=== PATIENT | male | born 1965 | race Caucasian/White ===

== ENCOUNTER 2019-02-18 02:16 | Outpatient (CLI) | payer MEDICAID, SELFPAY ==
[2019-02-18 10:58] LABS: CREATININE 0.97 mg/dL (0.70-1.30); Cholesterol 189 mg/dL (50-200); Glucose 104 mg/dL (70-100); HDL Cholesterol 99 mg/dL (40-60); LDL CHOLESTEROL 70 mg/dL (<100); Triglyceride 45 mg/dL (30-150)
== END 2019-02-18 02:36 ==
PROVIDERS: PCP General Practice; Visit Provider General Practice
DX: Z13.220 Encounter for screening for lipoid disorders (principal); Z13.1 Encounter for screening for diabetes mellitus; Z00.00 Encounter for general adult medical examination without abnormal findings; Z13.89 Encounter for screening for other disorder
CPT/HCPCS: 36415; 80061; 82947; 83721; 82565

== ENCOUNTER 2019-03-28 00:30 | Outpatient (CLI) | payer MEDICAID, SELFPAY ==
--- NOTE | 2019-03-28 12:43 | DI.US_ITS ---
SYMPTOMS/DIAGNOSIS: GROIN MASS, RT INGUINAL CREASE RIGHT GROIN ULTRASOUND: A 1.96 cm reducible right inguinal hernia is identified.
== END 2019-03-28 00:50 ==
PROVIDERS: PCP General Practice; Visit Provider General Practice
DX: K40.90 Unilateral inguinal hernia, without obstruction or gangrene, not specified as recurrent (principal); R22.2 Localized swelling, mass and lump, trunk
CPT/HCPCS: 76857

== ENCOUNTER 2022-05-04 18:28 | Outpatient (REF) | payer SELFPAY ==
[2022-05-04 18:12] LABS: HCT 47.3 % (40.0-50.0); HGB 16.1 g/dL (13.5-17.5); MCH 32.1 pg (27.0-33.0); MCV 94 fL (80-95); MPV 10.1 fL (8.0-11.0); Platelet Count 281 10^3/uL (130-400); RBC 5.02 10^6/uL (4.36-5.78); RDW 13.7 % (11.8-14.1); RDW-SD 48.2 fL; WBC 7.82 10^3/uL (4.4-10.8)
[2022-05-04 18:23] LABS: ALT 21 U/L (16-63); AST 20 U/L (15-37); Alkaline Phosphatase 82 U/L (46-116); Anion Gap 9.5 mmol/L (3-11); BUN 16 mg/dL (7-18); Bilirubin, Total 0.4 mg/dL (0.2-1.0); CO2 24.5 mmol/L (21.0-32.0); CREATININE 0.9 mg/dL (0.70-1.30); Calcium 9.2 mg/dL (8.5-10.1); Chloride 101 mmol/L (98-107); Glucose 99 mg/dL (74-106); Potassium 4.8 mmol/L (3.5-5.1); Sodium 135 mmol/L (136-145); Total Protein 7.8 g/dL (6.4-8.2)
== END 2022-05-04 18:29 | disposition home or self-care (01) ==
LOC: NCHCN 18:28
PROVIDERS: PCP General Practice; Visit Provider Nurse Practitioner Family
DX: Z00.00 Encounter for general adult medical examination without abnormal findings (principal); F10.99 Alcohol use, unspecified with unspecified alcohol-induced disorder; Z72.0 Tobacco use
CPT/HCPCS: 80053; 85027

== ENCOUNTER 2023-01-21 15:08 | Outpatient (REF) | payer SELFPAY ==
[2023-01-21 19:00] LABS: ALT 46 U/L (16-63); AST 35 U/L (15-37); Albumin 4.1 g/dL (3.4-5.0); Alkaline Phosphatase 78 U/L (46-116); Anion Gap 9.3 mmol/L (3-11); BUN 13 mg/dL (7-18); Bilirubin, Total 0.4 mg/dL (0.2-1.0); CO2 23.7 mmol/L (21.0-32.0); Calcium 9.4 mg/dL (8.5-10.1); Chloride 102 mmol/L (98-107); Estimated GFR 87.78 (mL/min/1.73m2); Glucose 128 mg/dL (74-106); Potassium 4.2 mmol/L (3.5-5.1); Sodium 135 mmol/L (136-145); Total Protein 7.7 g/dL (6.4-8.2)
== END 2023-01-21 15:09 | disposition home or self-care (01) ==
LOC: NCHCN 15:08
PROVIDERS: PCP General Practice; Visit Provider Nurse Practitioner Family
DX: B35.1 Tinea unguium (principal)
CPT/HCPCS: 80053

== ENCOUNTER 2024-03-10 15:06 | Emergency (ER) | payer SELFPAY ==
--- NOTE | 2024-03-10 15:00 | RT.EKG_ITS ---
APPROVED REPORT Exam: Resting ECG Reason for Exam: stroke Patient Location: E HR:73 bpm ECG Measurements Heart Rate 73 AXIS MT 158 P 67 QRSd 92 QRS -5 QT 415 T 59 QTc 459 Conclusion Sinus rhythm...normal P axis, V-rate 60- 99 Narrow complex normal sinus rhythm at a rate of 73. Intervals within normal limits. No ST segment a bnormalities. T wave flattening in aVL. No T wave versions. No prior for comparison. No acute inj ury pattern.
[2024-03-10 15:09] VITALS: BP 166/93; PULSE 76; RESP 18; TEMP 36.7; O2SAT 99
--- NOTE | 2024-03-10 15:15 | DI.CT_ITS ---
Exam(s) CT BRAIN NECK CTA EXAM: CT BRAIN NECK CTA CLINICAL HISTORY: Right arm numbness. TECHNIQUE: Imaging Protocol: Axial CT angiography was performed with multi-slice acquisition and mu lti-planar and MIP reconstructions. CONTRAST MATERIAL: Intravenous: Omnipaque 350 Contrast volume:85 mL COMPARISON: No exams were available for comparison FINDINGS: CT Head W/O and W contrast: Ventricles and Extra axial spaces: Normal in size and morphology for the patient's age. Hemorrhage: None. Cerebral parenchyma: No evidence of acute infarct or mass. Midline shift: None. Brainstem/Cerebellum: No acute findings.. Calvarium: Normal. Visualized Paranasal sinuses/Mastoids: Mucous retention at the floors of the maxillary sinus and with in several ethmoid sinuses well as well as mucosal thickening of the frontal sinuses. Soft Tissues: Unremarkable. Enhancement: Normal. CTA Brain W: Internal Carotid Arteries: Petrous: Mild calcifications. No significant stenosis. Cavernous: Normal. Cerebral: Normal. Middle Cerebral Arteries: Right: No aneurysm, occlusion or significant stenosis. Left: No aneurysm, occlusion or significant stenosis. Anterior Cerebral Arteries: Right: No aneurysm, occlusion or significant stenosis. Left: No aneurysm, occlusion or significant stenosis. Posterior cerebral Arteries: Right: No aneurysm, occlusion or significant stenosis. Left: No aneurysm, occlusion or significant stenosis. Vertebral Arteries: Right: No aneurysm, occlusion or significant stenosis. Left: No aneurysm, occlusion or significant stenosis. Basilar Artery: No aneurysm, occlusion or significant stenosis. CTA Neck W: Common Carotid: Mild calcific plaque at the bulbs. Right: No dissection, occlusion or significant stenosis. Left: No dissection, occlusion or significant stenosis. External Carotid: Right: No dissection, occlusion or significant stenosis. Left: No dissection, occlusion or significant stenosis. Internal Carotid: Right: No dissection, occlusion or significant stenosis. Left: No dissection, occlusion or significant stenosis. Vertebral Artery: Right: No dissection, occlusion or significant stenosis. Left: No dissection, occlusion or significant stenosis. Lung Apices: Emphysematous changes. Bones: No acute abnormality. Degenerative changes in the cervical spine. Soft Tissues: Normal. IMPRESSION: 1. CTA brain: No evidence of occlusion, significant stenosis or aneurysm. 2. Head CT: Unremarkable CT Head. 3. CTA neck: Mild plaque at the common carotid bulbs. No significant stenosis. RADIATION DOSE DELIVERED: 1,797.71mGy.cm Total DLP DATA REPOSITORY: All CT scans at this facility are submitted to the National Radiology Data Registry (NRDR) Dose Index Registry (DIR) with the [employer] (A[employer]). RADIATION OPTIMIZATION: All CT scans at this facility use at least one of these dose optimization te chniques: automated exposure control; mA and/or kV adjustment per patient size (includes targeted exa ms where dose is matched to clinical indication); or iterative reconstruction.
--- NOTE | 2024-03-10 15:15 | DI.RAD_ITS ---
Exam(s) XR CHEST 1V IN DI DEPT EXAM: XR CHEST 1V IN DI DEPT CLINICAL HISTORY: Right arm numbness TECHNIQUE: 2D digital imaging was performed. COMPARISON: CT CT CHEST LUNG CANCER SCREEN from 05/11/2022 FINDINGS: LUNGS: Emphysematous changes, greater at the lung apices. Mild fibrotic changes. No evidence infilt rate or mass. No pleural abnormality seen. HEART: Normal size. AORTA: Normal diameter. BONES: Unremarkable for age. Soft tissues: Unremarkable. IMPRESSION: No acute findings. Emphysematous changes peer DATA REPOSITORY: RADIATION DOSE DELIVERED:
[2024-03-10 15:18] VITALS: BP 166/93; PULSE 76; RESP 16; RESP 18; TEMP 36.7; O2SAT 99
--- NOTE | 2024-03-10 15:27 | W.ED.GENAD ---
Discharge Plan Disposition Patient Disposition: Home Discharge Details Clinical Impression: Right sided numbness, Hypomagnesemia, Brain TIA, Blood pressure elevated without history of HTN Primary Care Provider: Natividad Falcon ED Provider: Damián Lasren Home Meds and New Rx's Prescriptions: New aspirin 81 mg capsule 81 mg PO DAILY Qty: 90 0RF simvastatin 20 mg tablet 20 mg PO DAILY Qty: 30 0RF Continued cyclobenzaprine 10 MG tablet 10 mg PO TID PRNQty: 30 0RF Discontinued ibuprofen 800 MG tablet 800 mg PO TID Qty: 30 0RF prednisone 20 MG tablet 20 mg PO DAILY Qty: 5 0RF Discharge Instructions Additional Instructions: You are seen in the emergency department for your left-sided numbness. Your CAT scan showed no sign of any bleeding in your head. You likely have had a mini stroke which is called a transient ischemic attack??TIA. If you develop similar symptoms again please return to the emergency department. Otherwise please take 81 mg of aspirin every day and follow-up with your primary care provider next week. You need to have an MRI performed of your brain, and echocardiogram performed of your heart, a Holter monitor, and to have your lipids checked. If you have any concerns or recurrent symptoms please return to the emergency department. Discharge Data Discharge Date/Time-TO BE ENTERED AT DEPARTURE: 03/10/24 17:57 HPI General Date/Time Provider Initiated Documentation: 03/10/24 15:24. HPI Narrative: MDM This is an overall well-appearing normothermic and not tachycardic but hypertensive 58-year-old male with transient right-sided numbness yesterday, elevated blood pressure and significant tobacco use concerning for the possibility of TIA. Patient is not a lytic candidate as he is having no neurological deficits at the moment so we will defer tPA. My suspicion is low for large vessel occlusion given no symptoms at the moment however given vascular risk factors of tobacco use with elevated blood pressure will complete CT angiogram of the patient's head and neck. No nuchal rigidity nor fevers to suggest meningitis so no indications for lumbar puncture. No tonic-clonic activity to suggest seizures I do not feel that the patient requires an EEG nor antiseizure medications. No chest pain to suggest aortic dissection. No pain out of proportion to suggest necrotizing soft tissue infection. No vomiting nausea nor nystagmus to suggest posterior circulation CVA so I did not apply the hints exam. No abdominal pain nor vomiting to suggest esophageal rupture. Once the CT has been completed we will consult neurology at [facility]. His ABCD2 score was 1. Will also place patient on a CIWA protocol given history of ethanol abuse. He is hypertensive but not tachycardic nor tremulous so will defer benzodiazepines at this point in time. 3:45 PM CBC lacks anemia thrombocytopenia and leukocytosis. 3:52 PM No obvious bleed on my preliminary interpretation of the patient's dry CT head. I placed a teleneuro consult with [facility]. 4:12 PM CTA brain with no evidence of occlusion significant stenosis or aneurysm. Negative CT head. Mild common carotid plaques. No significant stenoses per radiology. Basic metabolic panel showing no CKD. No DAISY. No acute electrolyte abnormalities. No hyperglycemia. Negative troponin. Very mild hypomagnesemia for which patient will receive oral repletion. Chest x-ray with emphysematous changes. No acute cardiopulmonary process per radiology. 5:10 PM I spoke to Dr. Garcia from neurology at [facility]. He advised aspirin load at 324 mg then discharged with daily aspirin at 81 mg. He also advised daily atorvastatin at 20 mg. He advised outpatient brain MRI echocardiogram Holter monitor and lipid assessment. 5:40 PM I have asked health community pharmacist [facility] to have the patient seen next week by primary care to coordinate follow-up studies as recommended by neurology. I met with the patient and advised him to return to the emergency department if his symptoms recurred or if he developed any other numbness or any weakness. I also advised that he discontinue smoking as this was a risk factor for cardiovascular disease. He understood his return indications and was discharged with empiric trial of expectant outpatient management. Patient in no withdrawal symptoms in the ED. His repeat blood pressure was still elevated. Chronic conditions affecting the care of the patient: Tobacco use History obtained from an outside historian: N/A External record review: No [facility] EMR records [Diagnostic interpretations performed by me: Per my independent interpretation chest x-ray shows: No acute cardiopulmonary process Per my independent interpretation EKG shows: Narrow complex normal sinus rhythm at a rate of 73. Intervals within normal limits. No ST segment abnormalities. T wave flattening in aVL. No T wave versions. No prior for comparison. No acute injury pattern. ]Medications: Aspirin Social determinants of health affecting disposition: N/A Management discussed with: Neurology Treatment/interventions considered: N/A Response to therapies provided: N/A HPI This is a 58-year-old male with a [id number] history of tobacco use arriving to emergency department via private vehicle in the setting of right-sided numbness yesterday afternoon at approximately 5:30 PM. Patient reportedly collapsed and was on the ground for 10 minutes. Today, his girlfriend advised him to seek medical attention he subsequently went to urgent care and then was directed to the emergency department. Yesterday he says that he was on the porch and collapsed. He did not strike his head. He did not lose consciousness. He did not have any difficulty speaking. He denied any headache or visual changes. No prior history of similar symptoms. Denies any recent changes in vision. Denies chest pain nausea vomiting shortness of breath and headache. Beyond his tobacco use patient reportedly drinks 6-7 beers per day. He denies illicit drug use. Exam General: Well-appearing in no acute distress speaking in complete sentences. Head: Normocephalic, atraumatic. Eye:[Pupils equal, round reactive to light.] Extraocular eye movements intact. No conjunctival injection. No scleral icterus. Ear, nose, mouth, throat: Grossly normal inspection. Normal voice, handling secretions normally. Neck: Trachea midline. Cardiovascular: Well-perfused distal extremities. Regular rate and rhythm. Respiratory: Nonlabored respiration.Clear lungs bilaterally. Gastrointestinal: Nondistended abdomen. Soft nontender. Musculoskeletal: No significant lower extremity pitting edema. Moving all 4 extremities spontaneously. Skin: Normal for age and race, grossly normal temperature and turgor. No acute rash. Neurologic: Alert and appropriate, no apparent acute deficits. GCS 15. Cranial nerves II through XII intact grossly. 5 out of 5 bilateral upper and lower extremity strength. No dysmetria. No dysdiadochokinesia. No pronator drift. No truncal ataxia. Please see neuronote for complete stroke scale. Psychiatric: Mood and manner are appropriate. Grooming and personal hygiene are appropriate. Related Data Home Medications Medication Instructions Recorded Confirmed cyclobenzaprine 10 mg tablet 10 mg PO TID PRN #30 tabs 10/29/16 aspirin 81 mg capsule 81 mg PO DAILY #90 caps 03/10/24 simvastatin 20 mg tablet 20 mg PO DAILY #30 tabs 03/10/24 Previous Rx's Medication Instructions Recorded cyclobenzaprine 10 mg tablet 10 mg PO TID PRN #30 tabs 10/29/16 aspirin 81 mg capsule 81 mg PO DAILY #90 caps 03/10/24 simvastatin 20 mg tablet 20 mg PO DAILY #30 tabs 03/10/24 Allergies Allergy/AdvReac Type Severity Reaction Status Date / Time No Known Allergies Allergy Unverified 03/10/24 15:12 General Stated Complaint: GenMedical TIERRA: 3 Course Vital Signs Vital signs: Vital Signs Temperature 36.7 C 03/10/24 15:09 Pulse 76 03/10/24 15:09 Respiratory Rate 18 03/10/24 15:09 Blood Pressure 166/93 H 03/10/24 15:09 Pulse Oximetry 99 03/10/24 15:09 Temperature 36.7 C 03/10/24 15:18 Temperature Source Skin 03/10/24 15:18 Pulse 76 03/10/24 15:18 Respiratory Rate 16 03/10/24 15:18 Respiratory Effort Normal, Non-Labored 03/10/24 15:18 Respiratory Depth Normal 03/10/24 15:18 Respiratory Pattern Normal 03/10/24 15:18 Blood Pressure 166/93 H 03/10/24 15:18 Blood Pressure Position Sitting 03/10/24 15:18 Pulse Oximetry 99 03/10/24 15:18 Oxygen Delivery Method Room Air 03/10/24 15:18 Oxygen Flow Rate 0 03/10/24 15:09 Pain Level 0 03/10/24 15:18 Medical Decision Making Quality:SDOH Health Related Social Needs: No Data to Display PFSH All Active Problems (Updated 03/10/24 @ 17:39 by Damián Larsen MD) Blood pressure elevated without history of HTN (Acute) Brain TIA (Acute) Hypomagnesemia (Acute) Right sided numbness (Acute) Social History Smoking/Tobacco Use Status: Current every day Smoking risk assessment performed?: Yes Alcohol Intake: current Alcohol Intake frequency: 0-2 drinks per day Drug use: Current Sobriety Substance use type: does not use Do you feel safe in your relationship?: Yes
[2024-03-10 15:37] LABS: Abs Immature Grans 0.04 10^3/uL (0.0-0.06); Absolute Basophil Count 0.07 10^3/uL (0.0-0.2); Absolute Eosinophil Count 0.19 10^3/uL (0.0-0.7); Absolute Lymphocyte Count 1.74 10^3/uL (1.2-3.4); Absolute Monocyte Count 0.91 10^3/uL (0.1-0.8); Absolute Neutrophil Count 5.37 10^3/uL (1.2-6.7); Basophils % 0.8 %; Eosinophils % 2.3 %; HCT 40.2 % (40.0-50.0); HGB 14.2 g/dL (13.5-17.5); Immature Grans % 0.5 %; Lymphocytes % 20.9 %; MCH 34.5 pg (27.0-33.0); MCHC 35.3 % (32.0-36.0); MCV 98 fL (80-95); Monocytes % 10.9 %; Neutrophils % 64.6 %; Platelet Count 215 10^3/uL (130-400); RBC 4.11 10^6/uL (4.36-5.78); RDW-SD 46.1 fL; WBC 8.32 10^3/uL (4.4-10.8)
[2024-03-10] MEDS: Normal Saline - Diluent 50 ML VIAL IJ (15:38)
[2024-03-10] MEDS: Omnipaque 350 MG/ML 100 ML BTL IJ (15:39)
[2024-03-10 16:01] LABS: Anion Gap 10.9 mmol/L (3-11); BUN 9 mg/dL (7-18); CO2 25.1 mmol/L (21.0-32.0); Calcium 8.8 mg/dL (8.5-10.1); Chloride 101 mmol/L (98-107); Estimated GFR 87.24 (mL/min/1.73m2); Glucose 101 mg/dL (74-106); Magnesium 1.7 mg/dL (1.8-2.4); Potassium 4.1 mmol/L (3.5-5.1); Sodium 137 mmol/L (136-145); Troponin I < 50 ng/L (< or =60)
[2024-03-10] MEDS: Magnesium Oxide 400 MG TAB 800 MG PO (17:17)
[2024-03-10] MEDS: Aspirin 325 MG TAB PO (17:22)
[2024-03-10 17:55] VITALS: BP 171/113; PULSE 65; TEMP 36.6; O2SAT 96
--- NOTE | 2024-03-10 18:08 | NUR.NOTE ---
Nursing Note: PT needs follow up and to establish care MONICA. Follow up for ER visit, Labs, MRI. Renate, ED
== END 2024-03-10 17:57 | disposition home or self-care (01) ==
PROVIDERS: Emergency Provider Emergency Medicine; PCP Nurse Practitioner Family
DX: G45.9 Transient cerebral ischemic attack, unspecified (principal); R20.0 Anesthesia of skin; E83.42 Hypomagnesemia; F17.200 Nicotine dependence, unspecified, uncomplicated
CPT/HCPCS: 36415; 70496; 70498; 80048; 93005; 99285; 71045; 83735; 84484; 85025; 93010; 99283; J3490

== ENCOUNTER 2024-03-20 19:29 | Outpatient (REF) | payer SELFPAY ==
[2024-03-20 19:32] LABS: Calculated LDL 51 mg/dL (<100); Cholesterol 174 mg/dL (<200); HDL Cholesterol 114 mg/dL (40-60); Magnesium 1.8 mg/dL (1.8-2.4); Triglyceride 47 mg/dL (<150)
== END 2024-03-20 19:30 | disposition home or self-care (01) ==
LOC: NCHCN 19:29
PROVIDERS: PCP Nurse Practitioner Family; Visit Provider Physician Assistant Medical
DX: Z86.73 Personal history of transient ischemic attack (TIA), and cerebral infarction without residual deficits (principal); E83.42 Hypomagnesemia; Z13.220 Encounter for screening for lipoid disorders
CPT/HCPCS: 80061; 83735

== ENCOUNTER 2024-03-24 13:39 | Outpatient (RCR) | payer SELFPAY ==
--- NOTE | 2024-03-24 13:30 | HOLTER_ITS ---
APPROVED REPORT Conclusion This is a 24-hour Holter monitor Rhythm throughout is sinus with an average heart rate of 82. Minimum was 67, maximum 131 There were very rare isolated ventricular ectopic beats There were rare isolated atrial premature beats There was 1 self-limited atrial run, 9 beats in duration There was no atrial fibrillation, no high-grade AV block, no pauses greater than 3 seconds No patient symptoms were reported
== END 2024-04-16 23:59 | disposition home or self-care (01) ==
LOC: CARDOPNVT 13:39
PROVIDERS: PCP Nurse Practitioner Family; Visit Provider Physician Assistant Medical
DX: Z86.73 Personal history of transient ischemic attack (TIA), and cerebral infarction without residual deficits (principal); I49.1 Atrial premature depolarization
CPT/HCPCS: 93225; 93226

== ENCOUNTER 2025-03-28 09:54 | Emergency (ER) | payer MEDICAID, SELFPAY ==
[2025-03-28 10:13] VITALS: BP 165/91; PULSE 93; RESP 12; TEMP 36.7; O2SAT 97
--- NOTE | 2025-03-28 11:05 | ED.GENADUL_ITS ---
Discharge Plan Disposition Patient Disposition: Home Condition: Good Discharge Details Clinical Impression: Back pain, Sciatica, Muscle spasm Primary Care Provider: Natividad Falcon ED Provider: Nicole Philippe Home Meds and New Rx's Prescriptions: New methocarbamol 750 mg tablet 1,500 mg PO TID PRNQty: 20 0RF Continued aspirin 81 mg capsule 81 mg PO DAILY Qty: 90 0RF simvastatin 20 mg tablet 20 mg PO DAILY Qty: 30 0RF Discharge Instructions Instructions: Radiculopathy of the neck and back (including sciatica), Low Back Pain ED Additional Instructions: Your x-ray is reassuring for no evidence of disc fracture or dislocation. However, you do have some degenerative findings concerning for osteoarthritis. Your exam and history are most consistent with sciatica, likely from a pinched nerve in your back. Referral for physical therapy has been made, you will find a sheet attached to this that you may bring to your physical therapy office of choice to begin treatment. Please continue encouraged gentle and frequent movements, frequent walking but avoid heavy lifting as this may cause increased discomfort. Please continue with Tylenol and ibuprofen as needed for discomfort. Please take it directed on the packaging. He also try topical lidocaine patches which are available [id number]. I have also prescribed you a muscle relaxant, methocarbamol, which bedside to your pharmacy. Please take this medication only as directed, do not drive or drink alcohol while using this medication. If you develop fever/chills, increased pain, changes in your bowel or bladder habits, weakness or other new/worsening symptoms, please seek care urgently once again. Otherwise, please follow-up with primary care as already scheduled. Stand Alone Forms: Physical Therapy Referral Referrals: Natividad Falcon [Primary Care Provider] - Discharge Data Discharge Date/Time-TO BE ENTERED AT DEPARTURE: 03/28/25 13:02 HPI <NASREEN Boo - Last Filed: 03/28/25 21:06> General Date/Time Provider Initiated Documentation: 03/28/25 10:58 . Information obtained by: family () and RN notes reviewed . History of Present Illness 59 year old M presents to the emergency department with the chief complaint of acute on chronic back pain with pain into RLE, described as severe and similar to prior episodes, Quality is described as stabbing and aching, and is localized to the back, right and lower extremity. Patient extremity. Patient started experiencing this year(s) (wax/wane, increased in recent days after, throwing it out) and it has been constant. Immobilization improves symptom(s), Movement worsens symptoms . Patient notes other (no change in bowel or bladder habits); denies chest pain, cough, fever/chills, malaise, rash, shortness of breath and weakness. Patient did receive the following treatments prior to arrival, other (chiropractic manipulation) Related Data Home Medications ?Medication ?Instructions ?Recorded ?Confirmed aspirin 81 mg capsule 81 mg PO DAILY #90 caps 03/10/24 03/28/25 simvastatin 20 mg tablet 20 mg PO DAILY #30 tabs 03/10/24 03/28/25 methocarbamol 750 mg tablet 1,500 mg (2 x 750 mg) PO TID PRN 03/28/25 #20 tabs Previous Rx's ?Medication ?Instructions ?Recorded aspirin 81 mg capsule 81 mg PO DAILY #90 caps 03/10/24 simvastatin 20 mg tablet 20 mg PO DAILY #30 tabs 03/10/24 methocarbamol 750 mg tablet 1,500 mg (2 x 750 mg) PO TID PRN 03/28/25 #20 tabs Allergies Allergy/AdvReac Type Severity Reaction Status Date / Time No Known Allergies Allergy Unverified 03/28/25 10:31 General Stated Complaint: Orthopedic TIERRA: 4 <Calvin Aguayo MD - Last Filed: 03/28/25 11:29> General Mode of arrival: ambulatory . Limitations to Documentation: no limitations . Information obtained by: patient . Review of Systems <NASREEN Boo - Last Filed: 03/28/25 21:06> Constitutional Constitutional: Reports as per HPI, Denies chills, Denies fever(s), Denies frequent falls and Denies headache(s) ENT Ears, Nose, Mouth, and Throat: Denies headache(s) Cardiovascular Cardiovascular: Denies chest pain and Denies dyspnea Respiratory Respiratory: Denies cough and Denies dyspnea Gastrointestinal Gastrointestinal: Denies abdominal pain, Denies change in bowel habits and Denies fecal incontinence Genitourinary Genitourinary: Reports as per HPI, Denies urinary hesitancy and Denies urinary incontinence Musculoskeletal Musculoskeletal: Reports as per HPI, Reports back pain, Denies muscle weakness, Denies numbness, Reports stiffness and Denies tingling Integumentary/Breasts Skin/Breast: Reports as per HPI and Denies rash Neurologic Neurologic: Reports as per HPI, Denies frequent falls, Denies headache(s), Denies localized weakness, Denies numbness, Denies radicular pain, Denies sensory deficit, Denies tingling and Denies paresthesias Exam <NASREEN Boo - Last Filed: 03/28/25 21:06> Const General: cooperative, healthy appearing, comfortable, no acute distress, well developed and well groomed Nutritional Appearance: average body habitus and well nourished Orientation: alert and awake Resp Effort & Inspection: normal respiratory effort and able to speak in complete sentences Auscultation: clear to auscultation bilaterally, no rales, no rhonchi and no wheezes Cardio Rate: regular rate Rhythm: regular rhythm Heart Sounds: S1 normal and S2 normal Back/Spine/Pelvis Back: no CVA tenderness Thoracic/Lumbar Spine: thoracic and lumbar spine normal to inspection, No surgical scar(s) present, paraspinal tenderness (right lumbar), thoraco-lumbar ROM limited (generally stiff with movements, particularly with extension), thoraco-lumbar spasm (visible and palpable right sided lumbar muscle spasm), No thoracic spinal tenderness, No lumbar spinal tenderness (no midline pain or step off) and straight leg raise positive Pelvis: no pain with anterior-posterior compression and no pain with lateral compression Skin General skin exam: no rashes or lesions noted Neuro General: patient alert and patient awake Cognition: normal cognition Speech: speech normal Gait: normal gait (bent forward slightly with ambulation) Motor: muscle tone normal throughout, strength 5/5 throughout, no movement abnormalities noted and no fasciculations Sensory Exam: no sensory deficits noted (no saddle paresthesias) Extrem General: normal to inspection, full ROM, capillary refill normal, no joint enlargement, no pedal edema, no calf tenderness and normal gait Course <NASREEN Boo Last Filed: 03/28/25 21:06> Vital Signs Vital signs: Vital Signs Temperature 36.7 C 03/28/25 10:13 Pulse 93 H 03/28/25 10:13 Respiratory Rate 12 03/28/25 10:13 Blood Pressure 165/91 H 03/28/25 10:13 Pulse Oximetry 97 06/11/25 10:13 Temperature 36.7 C 03/28/25 10:13 Temperature Source Oral 03/28/25 10:13 Pulse 93 H 03/28/25 10:13 Respiratory Rate 12 03/28/25 10:13 Blood Pressure 165/91 H 03/28/25 10:13 Blood Pressure Position Sitting 03/28/25 10:13 Pulse Oximetry 97 03/28/25 10:13 Oxygen Delivery Method Room Air 03/28/25 10:13 Oxygen Flow Rate 0 03/28/25 10:13 Pain Level 8 03/28/25 10:13 Medical Decision Making <NASREEN Boo - Last Filed: 03/28/25 21:06> Patient's was a 59-year-old male, coming by significant other, presenting with chief complaint of cute on chronic back pain that radiates down the right lower extremity. He reports that he threw his back out few weeks ago. Was seen multiple times by his chiropractor which typically does help with the pain. Despite this, pain is continued to increase. Has been diagnosed, per patient, with sciatica associated with this chronic back pain. States that the pain has continued to elevate. He does have a primary care appointment tomorrow but felt that the pain was too great prompting him to come in today. He denies any weakness, change in bowel or bladder habits. No numbness/tingling or weakness. Has had several chiropractic manipulations. On exam, patient appears non-toxic. Comfortable when resting but stiff with movement. He has no neurological deficit, no saddle paresthesias. He has 5/5 strength in BLE but does have increasing pain with straight leg raise on the right side. He indicates posterior leg is primary area of discomfort. No swelling, discoloration, cyanosis. No joint swelling. No midline pain or step off of lumbar or thoracic spine. He has visible and palpable muscle spasm along the right lumbar spine, this area is most discomfort. At this time, no indication of quada equina. No recent trauma. As this has been waxing/waning over eyars, will obtain imaging. He has not had imaging for this previously. Patient has not worked with PT, has only worked with chiropractor so far. I do not see need for MRI at this point. As this is acute on chronic, no systemic symptoms, no need for labs at this point. With the large palpable area of spasm, will give Methocarbamol. is driving. Will also given NSAID and APAP, put Lidoderm patch on once back from imaging. XR reivewed by radiologist and myself. Degenerative changes noted but no acute process. Atherosclerotic changes noted. Discussed this with [facility] patient as well- advised that he discuss further with PCP. We did discuss that this is going to be a systemic issue. He is feeling much improved after the above treatment. He is agreeable to attending PT. Encouraged hydration, smoking cessation, gentle/frequent movement. He feels ready to go home which I feel is appropriate. Will continue with Methocarbamol on short term basis. Strict return precautions discussed. He has appointment with PCP tomorrow. All of his questions and concerns were addressed, he is in agreement with this plan. Quality:[facility] Related Social Needs: No Data to Display PFSH <NASREEN Boo - Last Filed: 03/28/25 21:06> All Active Problems (Updated 03/28/25 @ 12:47 by NASREEN Boo) Muscle spasm (Acute) Sciatica (Acute) Back pain (Acute) Social History Smoking/Tobacco Use Status: Current every day Smoking risk assessment performed?: Yes Alcohol Intake: current Alcohol Intake frequency: 0-2 drinks per day Drug use: Current Sobriety Substance use type: does not use Do you feel safe at home: Yes Do you feel safe in your relationship?: Yes PAWSS <NASREEN Boo - Last Filed: 03/28/25 21:06> Have you Been Recently Intoxicated or Drunk Within the Last 30 days?: No Have you Ever Experienced Previous Episodes of Alcohol Withdrawal?: No Have you ever Experienced Withdrawal Seizures?: No Have you ever Experienced Delirium Tremens(DT)s?: No Have you ever undergone Alcohol Rehabilitation Treatment (i.e, inpt ot outpatient treatment programs)?: No Have you ever Experienced Blackouts?: No Have you ever Combined Alcohol with other Downers within the last 90 days?: No Have you ever Combined Alcohol with any other Substance of Abuse during the last 90 days?: No Positive Blood Alcohol level on Presentation? [PCS.BAL]: No Evidence of Increased Autonomic Activity (i.e. HR>120, tremor, sweating, agitation, nausea)?: No Result: 0 <Calvin Aguayo MD - Last Filed: 03/28/25 11:29> Result: 0
--- NOTE | 2025-03-28 11:15 | DI.RAD_ITS ---
Exam(s) XR LUMBAR SPINE COMPLETE EXAM: XR LUMBAR SPINE COMPLETE CLINICAL HISTORY: chronic pain, more on right. TECHNIQUE: 2D digital imaging was performed of the lumbar spine. Five images were obtained. AP, la teral, right oblique, left oblique and L5-S1 spot views were obtained. COMPARISON: No exams were available for comparison FINDINGS: BONES: No fracture or destructive lesion. Endplate osteophytes are seen from L2-3 through L5-S1. Dege nerative changes of the facets are seen in the lower lumbar spine. DISKS: There is disc space narrowing at L3-4 and L5-S1. ALIGNMENT: Lumbar spinal alignment is within normal limits. No spondylolysis or spondylolisthesis. SOFT TISSUE: Atherosclerotic calcification is present. IMPRESSION: 1. Mild degenerative changes seen in the lumbar spine. 2. No acute fracture or subluxation is present. DATA REPOSITORY: RADIATION DOSE DELIVERED:
[2025-03-28] MEDS: Methocarbamol 500 MG TAB 1500 MG PO (11:52)
[2025-03-28] MEDS: Ibuprofen 600 MG TAB PO (11:52)
[2025-03-28] MEDS: Lidocaine 5% Patch 1 PATCH TP (11:52)
[2025-03-28] MEDS: Acetaminophen 500 MG TAB 1000 MG PO (11:52)
== END 2025-03-28 13:02 | disposition home or self-care (01) ==
PROVIDERS: Emergency Provider Physician Assistant; PCP Nurse Practitioner Family
DX: M54.41 Lumbago with sciatica, right side (principal); M62.830 Muscle spasm of back; F17.210 Nicotine dependence, cigarettes, uncomplicated; Z86.73 Personal history of transient ischemic attack (TIA), and cerebral infarction without residual deficits; Z79.82 Long term (current) use of aspirin
CPT/HCPCS: 99283; 72110

== ENCOUNTER 2025-04-26 01:18 | Outpatient (CLI) | payer MEDICAID, SELFPAY ==
--- NOTE | 2025-04-26 | DI.MRI_ITS ---
Exam(s) MR LUMBAR SPINE WO EXAM: MR LUMBAR SPINE WO CLINICAL HISTORY: Low back pain M54.50 Chronic pain G89.29 Lumbosacral pain. TECHNIQUE: Multiplanar multisequence MRI of the Lumbar spine was performed. COMPARISON: CR XR LUMBAR SPINE COMPLETE from 03/28/2025 FINDINGS: Conus medullaris is at normal level. There is no evidence of conus mass nor subjacent clumping of intrathecal nerve roots to suggest arachnoiditis. The distal thecal sac appears unremarkable.There is no evidence of Tarlov intrasacral cysts nor other significant findings within the sacral canal Bones:There are no fractures nor ominous osseous lesions in the lumbar vertebral bodies and visualized sacrum. There is no scoliosis. With respect to the individual disc levels... T12-L1: Inter osseous lipping. No disc herniation or central canal stenosis. No foraminal stenosis. L1-2: Normal disc height and signal. There is asymmetric annular bulging on the right side which slightly indents the thecal sac at the right lateral recess level. There is no large disc herniation at this level. The annular bulging does not extend into the exiting neural foramen and there is no foraminal stenosis on either side. Central canal dimensions are lower normal. Facet joints unremarkable. L2-3: This level exhibits mild decreased disc height in uniform fashion. There is mild annular bulging. This extends into the floor of the exiting right neural foramen but without significant foraminal stenosis. Left exiting neural foramen is also patent. Central canal dimensions are lower normal. Mild facet joint degenerative changes in the right facet. L3-4: This level exhibits moderate disc space narrowing in uniform fashion. Posteriorly there is no disc herniation but there is annular bulging asymmetrically into the floor of the exiting left neural foramen with a small lateral disc protrusion at this level. However, this does not appear to impinge upon the exiting left nerve root at this level. There is no foraminal stenosis on the opposite-right side. Central canal dimensions are within normal limits. Facet joints appear unremarkable at this level. L4-5: There is asymmetric disc space narrowing on the right side of the disc space and there is a central-right paracentral disc protrusion which extends into the exiting right neural foramen causing right-sided foraminal stenosis. There is no disc herniation in the opposite-left exiting neural foramina. Central canal dimensions are lower normal. Facet joints unremarkable. No significant ligamentum flavum hypertrophy. L5-S1: Chronic decreased disc space narrowing. Posterior subligamentous annular bulging but no prominent disc herniation. Central canal dimensions are lower normal. Facet joints appear unremarkable. There is no significant foraminal stenosis at this level. Soft tissues: paraspinal soft tissues appear unremarkable. IMPRESSION: 1. Multilevel findings as described individually above. 2. There is asymmetric disc space narrowing on the right side at L4-5 level and there is a central-right paracentral disc herniation which extends into the exiting right neural foramen and there is significant right-sided foraminal stenosis at this level with impingement of the exiting right nerve root in the exiting neural foramen at this level. There is no disc herniation in the opposite-left exiting neural foramen at this level and the central canal dimensions are lower normal. Facet joints are unremarkable at this level 3. There is a lateral left disc protrusion in the exiting left neural foramen at L3-4 level. However, this does not appear to obviously impinge upon the exiting nerve root, as is the case at the L4-5 level. 4. Other findings as above. DATA REPOSITORY:
== END 2025-04-26 01:38 ==
PROVIDERS: PCP Nurse Practitioner Family; Visit Provider Nurse Practitioner Family
DX: M54.50 Low back pain, unspecified (principal); G89.29 Other chronic pain
CPT/HCPCS: 72148

== ENCOUNTER 2025-05-18 01:26 | Outpatient (CLI) | payer MEDICAID, SELFPAY ==
--- NOTE | 2025-05-18 13:27 | DI.CTLCSR_ITS ---
Exam(s) CT CHEST LUNG CANCER SCREEN EXAM: CT CHEST LUNG CANCER SCREEN CLINICAL HISTORY: NICOTINE DEPENDENCE, F17.210 TECHNIQUE: Imaging Protocol: Axial computed tomography images with coronal and sagittal reformatted images were created and reviewed. Low dose screening protocol. COMPARISON: CT CT CHEST LUNG CANCER SCREEN from 05/11/2022 FINDINGS: Tracheobronchial tree: No bronchiectasis or mucus plugging. Mild bronchial wall thickening. Mediastinum and Rosanne: No dominant adenopathy or fluid collection. Pulmonary parenchyma: No consolidation or dominant measurable mass. Atelectasis at the right lung base. Severe emphysematous changes bullous changes at the right upper lobe. Moderate emphysematous changes in the upper lobes. Mild emphysema in the lower lobes. No significant interstitial changes. Lung Nodules: Stable circumscribed 4 x 5 millimeter nodule in the right upper lobe. Pleura: No effusion. No pneumothorax. Heart: The heart is not dilated. Moderate coronary artery calcifications are seen. No pericardial effusion. Aorta: Thoracic aorta non-dilated. Minimal calcification. Upper abdomen: Unremarkable. Bones: Unremarkable for age. Soft Tissues: Unremarkable. IMPRESSION: No suspicious pulmonary nodules. Lung RADS Cat 2 - Benign Appearance / Behavior: Nodules with a very low likelihood of becoming a clinically active cancer due to size or lack of growth Lung-RADS 1.0 CATEGORIES: Category 0 - Prior chest CT exam(s) being located for comparison. Category 1 - Annual screening in 12 months. No nodules or definitely benign nodules. Category 2 - Annual screening in 12 months. Benign appearance. Nodules with low likelihood of becoming active cancer. Category 3 - 6-month follow-up. Probably benign. Short-term follow-up suggested. Nodules with low likelihood of becoming active cancer. Category 4A - 3-month follow-up and CT/PET if >8 mm in size. Suspicious finding. Findings which require additional testing. Category 4B - Findings which require additional testing and tissue sampling. Category 4X - Category 3 or 4 nodules with additional features or imaging findings that increases the suspicion of malignancy. Modifier S- Potentially clinically significant findings (non lung cancer) RADIATION DOSE DELIVERED: Total DLP DATA REPOSITORY: All CT scans at this facility are submitted to the National Radiology Data Registry (NRDR) Dose Index Registry (DIR) with the [employer] (A[employer]). RADIATION OPTIMIZATION: All CT scans at this facility use at least one of these dose optimization techniques: automated exposure control; mA and/or kV adjustment per patient size (includes targeted exams where dose is matched to clinical indication); or iterative reconstruction.
== END 2025-05-18 01:46 ==
LOC: DI 01:26
PROVIDERS: PCP Nurse Practitioner Family; Visit Provider Family Medicine
DX: Z12.2 Encounter for screening for malignant neoplasm of respiratory organs (principal); F17.210 Nicotine dependence, cigarettes, uncomplicated
CPT/HCPCS: 71271